=== PATIENT | male | born 2000 | race American Indian/Alaskan Native ===

== ENCOUNTER 2022-12-06 03:06 | Emergency (ER) | payer BC, MEDICAID ==
[2022-12-06 04:39] LABS: CARBON DIOXIDE,CO2 27.7 mmol/L (21.0-32.0); POTASSIUM,K 3.5 mmol/L (3.5-5.1)
[2022-12-06 04:42] VITALS: BP 119/74; PULSE 106
== END 2022-12-06 04:54 | disposition home or self-care (01) ==
LOC: MW.ED 03:06
DX: L03.116 Cellulitis of left lower limb (principal)
CPT/HCPCS: 36415; 73620-26-LT; 73620-LT; 80048; 85025; 85610; 93971-26-LT; 93971-LT; 99283; 99284

== ENCOUNTER 2023-08-25 12:15 | Emergency (ER) | payer BC ==
[2023-08-25 13:07] VITALS: BP 124/85; PULSE 92
[2023-08-25] MEDS ORDERED: Lidocaine 1% 5 ML VIAL INJECT STA (14:36)
[2023-08-25] MEDS ORDERED: Diphtheria,Pertussis(Acell),Tetanus Vaccine 0.5 ML Syringe IM ONE (14:37)
== END 2023-08-25 16:46 | disposition home or self-care (01) ==
LOC: MW.ED 12:15
DX: S61.211A Laceration without foreign body of left index finger without damage to nail, initial encounter (principal); Z23 Encounter for immunization; W26.0XXA Contact with knife, initial encounter
CPT/HCPCS: 12001; 73140-26-F1; 73140-F1; 90471; 90715; 99283-25; J3490